=== PATIENT | female | born 2005 | race African-American/Black ===

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

== ENCOUNTER 2024-10-06 16:24 | Emergency (ER) | payer MEDICAID ==
[~2024-10-06] VITALS: Ht 177.8 cm; Wt 79.5 kg
[~2024-10-06 16:24] MED LIST changes: +CIPR-515 PO; -CIPR500T10 PO; -NEOM10SO14 AD; +NEOM10SO24 AD
[2024-10-06 16:28] VITALS: BP 139/85; PULSE 95; RESP 18; TEMP 98.2; O2SAT 100
[2024-10-06] MEDS: IBUPROFEN 600 MG TABLET PO ONE (18:47)
== END 2024-10-06 18:49 | disposition home or self-care (01) ==
LOC: EMS 16:24
DX: S96.912A Strain of unspecified muscle and tendon at ankle and foot level, left foot, initial encounter (principal); J45.909 Unspecified asthma, uncomplicated; Z79.899 Other long term (current) drug therapy; Z91.018 Allergy to other foods; W51.XXXA Accidental striking against or bumped into by another person, initial encounter; Y93.66 Activity, soccer; Y92.89 Other specified places as the place of occurrence of the external cause; Y99.8 Other external cause status
CPT/HCPCS: 99283

== ENCOUNTER 2024-11-29 06:12 | Emergency (ER) | payer MEDICAID ==
[~2024-11-29] VITALS: Ht 177.8 cm; Wt 75.0 kg
[~2024-11-29 06:12] MED LIST changes: -CIPR-515 PO; -FAMO20 PO; -NEOM10SO24 AD
[2024-11-29 06:19] VITALS: TEMP 98.2
[2024-11-29 07:09] LABS: PLATELET COUNT (AUTO) 216 K/uL (150-450); RED BLOOD CELL COUNT(AUTO) 4.15 MIL/uL (4.00-5.20); RED CELL DISTRIBUTION WIDTH 14.6 % (11.5-14.5); WHITE BLOOD COUNT (AUTO) 10.5 K/uL (4.5-11.0)
[2024-11-29 07:11] LABS: CALCIUM, TOTAL 9.1 mg/dL (8.8-10.5); CREATININE 0.53 mg/dL (0.60-1.30); GLOMERULAR FILTR. RATE CALC > 60 mL/min (>60); GLUCOSE,RANDOM 82 mg/dL (70-110); SODIUM SERUM 138 mmol/L (136-145); UREA NITROGEN, BLOOD 4 mg/dL (7-18)
[2024-11-29 07:21] LABS: ASPARTATE AMINOTRANSFERASE 17.0 U/L (15-37); TOTAL PROTEIN, SERUM 8.1 g/dL (6.4-8.2)
[2024-11-29 07:24] LABS: TROPONIN I-HIGH SENSITIVITY Less Than 4 ng/L (<51)
[2024-11-29] MEDS: ACETAMINOPHEN 500 MG TABLET PO ONE (08:16)
[2024-11-29] MEDS: DOXYLAMINE SUCCINATE 25 MG TABLET PO ONE (08:17)
[2024-11-29] MEDS: PYRIDOXINE HCL 50 MG TABLET PO ONE (08:17)
[2024-11-29 09:23] VITALS: BP 138/83; PULSE 88; RESP 18; O2SAT 100
[2024-11-29 09:38] LABS: APPEARANCE,URINE CLEAR (CLEAR); GLUCOSE, URINE (UA) NEGATIVE (NEGATIVE); LEUKOCYTE ESTERASE ,URINE NEGATIVE (NEGATIVE); NITRATE,URINE NEGATIVE (NEGATIVE); OCCULT BLOOD,URINE NEGATIVE (NEGATIVE); SPECIFIC GRAVITIY, URINE 1.023 (1.003-1.030)
[2024-11-29] MEDS ORDERED: DOXY1TAB3 PO (10:06)
== END 2024-11-29 10:30 | disposition home or self-care (01) ==
LOC: EMS 06:12
DX: O26.892 Other specified pregnancy related conditions, second trimester (principal); J45.909 Unspecified asthma, uncomplicated; R07.89 Other chest pain; Z3A.21 21 weeks gestation of pregnancy
CPT/HCPCS: 71045; 76801; 80048; 80076; 81003; 83690; 83880; 84484; 84702; 84703; 85025; 93005; 99285; 36415-L1; 36415-TC